=== PATIENT | male | born 1955 | race Caucasian/White ===

== ENCOUNTER 2019-01-27 14:17 | Emergency (ER) | payer BC ==
[~2019-01-27] VITALS: Ht 182.9 cm; Wt 88.6 kg
[~2019-01-27 14:17] MED LIST: ANTIVERT 25MG25 MG PO; ASPIRIN 81M81 MG/TA2 PO; ZOFRAN ODT4 MG PO
[2019-01-27 14:18] VITALS: TEMP 96.2
[2019-01-27] MEDS ORDERED: EXCEDRIN1 TAB PO (14:27)
[2019-01-27] MEDS ORDERED: VITAMIN A10k PO (14:28)
[2019-01-27] MEDS ORDERED: VITAMINC1000TA PO (14:29)
[2019-01-27] MEDS ORDERED: B COMPLEX #11 TAB PO (14:29)
[2019-01-27] MEDS ORDERED: VITAMINE200 PO (14:30)
[2019-01-27] MEDS ORDERED: VITAMIN D 400400 IU PO (14:30)
[2019-01-27] MEDS ORDERED: MULTIPLE VITAMI1 CAP PO (14:30)
[2019-01-27] MEDS ORDERED: EPA FISH OIL1 SGL PO (14:30)
[2019-01-27] MEDS ORDERED: THE MEDICINE S200 M2 PO (14:31)
[2019-01-27] MEDS ORDERED: MAGNESIUM200 MG PO (14:31)
[2019-01-27 14:58] LABS: BASO % 0.3 % (0.0-2.0); EOS # 0.1 (0.0-0.7); EOS % 0.8 % (0-4.0); GRAN # 8.6 (1.4-6.5); GRAN % 81.2 % (42.2-75.2); HEMATOCRIT 48.4 % (42.0-52.0); HEMOGLOBIN 16.9 g/dl (13.5-18.0); LYMPH # 1.3 (1.2-3.4); LYMPH % 11.8 % (20.0-51.0); MEAN CELL VOLUME 83 fl (80.0-100.0); MEAN CORPUSCULAR HEMOGLOBIN 29 pg (27.0-31.0); MEAN CORPUSCULAR HGB CONC 35 g/dl (33.0-37.0); MONO # 0.6 (0.1-0.6); MONO % 5.2 % (1.7-9.3); PLATELET COUNT 212 K/mm3 (130-400); RED BLOOD COUNT 5.84 M/mm3 (4.20-5.60); REDCELL DISTRIBUTION WIDTH-CV 13.2 % (11.5-14.5)
[2019-01-27 15:05] LABS: PROTHROMBIN TIME 11.2 SECONDS (9.7-12.8)
[2019-01-27 15:13] LABS: ALANINE AMINOTRANSFERASE 34 U/L (21-72); ALBUMIN 4.9 gm/dL (3.5-5.0); ALKALINE PHOSPHATASE 51 U/L (50-136); ANION GAP 12 mmol/L (7-16); AST,SGOT 28 U/L (15-37); BILIRUBIN,TOTAL 0.5 mg/dL (0.0-1.0); BLOOD UREA NITROGEN 18 mg/dL (9-20); CALCIUM 9.2 mg/dL (8.4-10.2); CARBON DIOXIDE 25 mmol/L (22-30); CHLORIDE 103 mmol/L (98-107); CREATININE, serum 0.68 (0.66-1.25); GLUCOSE 129 mg/dL (74-106); POTASSIUM 3.3 mmol/L (3.4-5.0); SODIUM 140 mmol/L (137-145); TOTAL PROTEIN 8.1 gm/dL (6.4-8.2)
[2019-01-27 15:28] LABS: TROPONIN-I < 0.012 ng/mL (0.000-0.035)
[2019-01-27] MEDS ORDERED: PRINZIDE 12.5 M1 TAB PO (16:20)
[2019-01-27] MEDS ORDERED: ANTIVERT 25MG25 MG PO (16:20)
[2019-01-27] MEDS ORDERED: ZOFRAN 4MG T4 MG/TAB PO (16:20)
[2019-01-27 16:48] VITALS: BP 170/106; PULSE 87
== END 2019-01-27 16:48 | disposition home or self-care (01) ==
LOC: COL.ER 14:17
PROVIDERS: Emergency Medicine
DX: R42 Dizziness and giddiness (principal); I10 Essential (primary) hypertension; Z88.0 Allergy status to penicillin
CPT/HCPCS: J0780